=== PATIENT | male | born 1950 | race Caucasian/White ===

== ENCOUNTER 2024-02-29 10:53 | Inpatient (IN) | payer OTHER ==
[~2024-02-29 10:53] MED LIST: Iopamidol-370 76% 500 ML MDV (1 ML CHARGE) ONE
[2024-02-29] MEDS ORDERED: Morphine 2 MG/ML VIAL ONE (11:21)
[2024-02-29] MEDS ORDERED: Ondansetron PF 4 MG/2 ML Vial ONE (11:22)
[2024-02-29] MEDS ORDERED: Pantoprazole 40 MG VIAL ONE (11:22)
[2024-02-29 11:44] LABS: #Basophils 0.05 10x3/uL (0.0-0.2); %Basophils 0.6 % (0.0-1.0); %Eosinophils 2.3 % (0.0-10.0); %Lymphocytes 13.8 % (21.0-51.0); %Monocytes 8.5 % (0.0-10.0); %Neutrophils 74.6 % (42.0-75.0); Hematocrit 37.9 % (42.0-52.0); Hemoglobin 11.8 g/dL (14.0-18.0); Mean Corpuscular HGB CONC 31.1 g/dL (32.0-36.0); Mean Corpuscular Hemoglobin 28.8 pg (27.0-31.0); Mean Corpuscular Volume 92.4 fL (78.0-98.0); Mean Platelet Volume 11.1 fL (7.4-10.4); Platelet Count 141 10x3/uL (130-400); RBC Distribution Width 13.8 % (11.5-14.5)
[2024-02-29 12:07] LABS: ALT (SGPT) 96 U/L (8-55); AST (SGOT) 108 U/L (5-34); Albumin 3.2 g/dL (3.4-4.8); Alkaline Phosphatase 368 U/L (40-110); Anion Gap 18 mmol/L (10-20); BUN (Urea Nitrogen) 17 mg/dL (8.4-25.7); Bilirubin, Total 1.9 mg/dL (0.2-1.2); Calc. Creatinine Clearance 0 mL/min (70-130); Calcium 9.2 mg/dL (7.8-10.44); Carbon Dioxide 27 mmol/L (23-31); Chloride 97 mmol/L (98-107); Estimated GFR 72; Globulin 3.7 g/dL (2.4-3.5); Glucose 101 mg/dL (83-110); Lipase 17 U/L (8-78); Potassium 4.8 mmol/L (3.5-5.1); Protein, Total 6.9 g/dL (5.8-8.1); Sodium 137 mmol/L (136-145)
[2024-02-29 12:13] LABS: Troponin I 0.085 ng/mL (< 0.028)
[2024-02-29] MEDS ORDERED: Piperacillin/Tazobactam 3.375 GM VIAL ONE (16:00)
[2024-02-29] MEDS ORDERED: Sodium Chloride 0.9% 100 ML ONE (16:02)
[2024-02-29] MEDS ORDERED: Bisacodyl 5 MG TAB PO PRN (17:52)
[2024-02-29] MEDS ORDERED: Ondansetron ODT 4 MG TAB PO PRN (17:52)
[2024-02-29] MEDS ORDERED: Senokot S 8.6-50 MG TAB PO PRN (17:52)
[2024-02-29] MEDS ORDERED: Ondansetron PF 4 MG/2 ML Vial IVP PRN (17:52)
[2024-02-29] MEDS: Sodium Chloride 0.9% 1,000 ML IV SCH (19:00)
[2024-02-29] MEDS: Piperacillin/Tazobactam 3.375 GM in Sodium Chloride 0.9% 100 ML IVPB SCH (20:50)
[2024-02-29] MEDS: levETIRAcetam 500 MG TAB PO SCH (20:50)
[2024-02-29] MEDS: Flecainide Acetate 100 MG TAB PO SCH (20:51)
[2024-02-29] MEDS: Terazosin HCl 1 MG CAP PO SCH (20:51)
[2024-02-29] MEDS: Pantoprazole DR 40 MG TAB PO SCH (20:51)
[2024-02-29 21:26] VITALS: BMI 29.1
[2024-03-01 04:55] LABS: #Basophils 0.06 10x3/uL (0.0-0.2); %Basophils 0.8 % (0.0-1.0); %Lymphocytes 9.3 % (21.0-51.0); %Neutrophils 77.4 % (42.0-75.0)
[2024-03-01 05:13] LABS: ALT (SGPT) 76 U/L (8-55); AST (SGOT) 92 U/L (5-34); Albumin 2.7 g/dL (3.4-4.8); Alkaline Phosphatase 315 U/L (40-110); Anion Gap 16 mmol/L (10-20); BUN (Urea Nitrogen) 14 mg/dL (8.4-25.7); Bilirubin, Total 1.7 mg/dL (0.2-1.2); Calc. Creatinine Clearance 86 mL/min (70-130); Calcium 8.1 mg/dL (7.8-10.44); Carbon Dioxide 23 mmol/L (23-31); Chloride 104 mmol/L (98-107); Estimated GFR 82; Globulin 3.2 g/dL (2.4-3.5); Glucose 72 mg/dL (83-110); Potassium 3.3 mmol/L (3.5-5.1); Protein, Total 5.9 g/dL (5.8-8.1); Sodium 140 mmol/L (136-145)
[2024-03-01 06:11] LABS: Anisocytosis SLIGHT = 6-15 cells HPF (0-5); Band 7 % (5-11); Eosinophils 3 % (0-10); Large Platelets 3.4 % (0-5); Lymphocytes 5 % (21-51); Macrocytosis SLIGHT = 6-15 cells HPF (0-5); Monocytes 3 % (0-10); Neutrophil 79 % (42-75); Ovalocytes SLIGHT = 2-5 cells HPF (0-1); Platelet Adequacy Comment Platelets Decreased; Polychromasia SLIGHT = 2-3 cells HPF (0-2); Smudge Cells 5.2 %
[2024-03-01] MEDS: Levothyroxine 175 MCG TAB PO SCH (06:12)
[2024-03-01 06:22] LABS: Hematocrit 33.4 % (42.0-52.0); Hemoglobin 10.5 g/dL (14.0-18.0); Mean Corpuscular HGB CONC 31.4 g/dL (32.0-36.0); Mean Corpuscular Hemoglobin 28.6 pg (27.0-31.0); Mean Platelet Volume 11.1 fL (7.4-10.4); Platelet Count 121 10x3/uL (130-400); Red Blood Cell (RBC) Count 3.67 mill/uL (4.70-6.10)
[2024-03-01] MEDS ORDERED: Electrolyte Replacement Protocol 1 EACH FS SCH (08:56)
[2024-03-01] MEDS ORDERED: Iopamidol 370 76% 100 ML VIAL ONE (09:44)
[2024-03-01] MEDS: Potassium Chloride 20 MEQ TAB PO SCH (10:17)
[2024-03-01] MEDS: Pantoprazole DR 40 MG TAB PO SCH (10:17)
[2024-03-01] MEDS: Ezetimibe 10 MG TAB PO SCH (20:25)
[2024-03-01] MEDS: Atorvastatin Calcium 40 MG TAB PO SCH (20:25)
[2024-03-01] MEDS: Terazosin HCl 1 MG CAP PO SCH (20:26)
[2024-03-01] MEDS: Timolol 0.5% Ophth Soln 5 ml Bottle EA EYE SCH (20:26)
[2024-03-02 05:46] LABS: Anion Gap 13 mmol/L (10-20); BUN (Urea Nitrogen) 9 mg/dL (8.4-25.7); Calc. Creatinine Clearance 111 mL/min (70-130); Calcium 7.9 mg/dL (7.8-10.44); Carbon Dioxide 22 mmol/L (23-31); Chloride 108 mmol/L (98-107); Estimated GFR 96; Glucose 100 mg/dL (83-110); Potassium 3.6 mmol/L (3.5-5.1); Sodium 139 mmol/L (136-145)
[2024-03-02 05:51] LABS: #Basophils 0.07 10x3/uL (0.0-0.2); %Basophils 0.9 % (0.0-1.0); %Eosinophils 5.8 % (0.0-10.0); %Lymphocytes 15.2 % (21.0-51.0); %Monocytes 8.5 % (0.0-10.0); %Neutrophils 69.1 % (42.0-75.0); Hematocrit 32.2 % (42.0-52.0); Hemoglobin 10.3 g/dL (14.0-18.0); Mean Corpuscular Hemoglobin 28.7 pg (27.0-31.0); Mean Corpuscular Volume 89.7 fL (78.0-98.0); Mean Platelet Volume 11.3 fL (7.4-10.4); Platelet Count 130 10x3/uL (130-400); RBC Distribution Width 14.2 % (11.5-14.5); Red Blood Cell (RBC) Count 3.59 mill/uL (4.70-6.10)
[2024-03-02] MEDS ORDERED: Electrolyte Replacement Protocol FS PRN (08:15)
[2024-03-02] MEDS: Aspirin 81 mg Enteric Coated Tablet PO SCH (08:49)
[2024-03-02] MEDS: Magnesium 2 GM/50 ML(in water) 2 GM in Premix 1 BAG IVPB SCH (09:01)
[2024-03-02] MEDS: Morphine 4 MG/ML VIAL SLOW IVP PRN (09:15)
[2024-03-02] MEDS ORDERED: PROPOFOL 40 ML ONE (11:23)
[2024-03-02] MEDS: Lidocaine 2% Viscous 10 mL, Alum & Magn 30 mL SSW SCH (14:53)
[2024-03-03 05:58] LABS: Anion Gap 12 mmol/L (10-20); BUN (Urea Nitrogen) 9 mg/dL (8.4-25.7); Calc. Creatinine Clearance 123 mL/min (70-130); Calcium 7.9 mg/dL (7.8-10.44); Carbon Dioxide 23 mmol/L (23-31); Chloride 109 mmol/L (98-107); Estimated GFR 98; Glucose 101 mg/dL (83-110); Potassium 3.8 mmol/L (3.5-5.1); Sodium 140 mmol/L (136-145)
[2024-03-03 06:27] LABS: #Basophils 0.07 10x3/uL (0.0-0.2); %Basophils 0.9 % (0.0-1.0); %Eosinophils 7.1 % (0.0-10.0); %Lymphocytes 16.6 % (21.0-51.0); %Monocytes 7.8 % (0.0-10.0); Hematocrit 32.9 % (42.0-52.0); Hemoglobin 10.1 g/dL (14.0-18.0); Mean Corpuscular HGB CONC 30.7 g/dL (32.0-36.0); Mean Corpuscular Hemoglobin 28.9 pg (27.0-31.0); Mean Platelet Volume 11.4 fL (7.4-10.4); Platelet Count 126 10x3/uL (130-400); RBC Distribution Width 14.6 % (11.5-14.5)
[2024-03-03 07:53] VITALS: TEMP 97.9
[2024-03-03 14:20] VITALS: BP 121/66
== END 2024-03-03 14:24 | disposition home or self-care (01) | DRG 375 ==
LOC: ERS 10:53 → EEVIPCON 17:25 → MSONC 17:25 → OBSVTOIN 03-01 13:11
PROVIDERS: ADMIT Internal Medicine; ATTEND Internal Medicine
PROC: 0DB58ZX Excision of Esophagus, Via Natural or Artificial Opening Endoscopic, Diagnostic (ICD-10-PCS; principal; 2024-03-02)
DX: C15.9 Malignant neoplasm of esophagus, unspecified (principal); C78.7 Secondary malignant neoplasm of liver and intrahepatic bile duct; I48.20 Chronic atrial fibrillation, unspecified; I10 Essential (primary) hypertension; E78.5 Hyperlipidemia, unspecified; I48.91 Unspecified atrial fibrillation; G40.909 Epilepsy, unspecified, not intractable, without status epilepticus; J45.909 Unspecified asthma, uncomplicated; K21.9 Gastro-esophageal reflux disease without esophagitis; E05.00 Thyrotoxicosis with diffuse goiter without thyrotoxic crisis or storm; N40.0 Benign prostatic hyperplasia without lower urinary tract symptoms; Z95.0 Presence of cardiac pacemaker; K74.60 Unspecified cirrhosis of liver; E03.9 Hypothyroidism, unspecified; Z79.890 Hormone replacement therapy; Z86.73 Personal history of transient ischemic attack (TIA), and cerebral infarction without residual deficits; Z79.899 Other long term (current) drug therapy; R13.10 Dysphagia, unspecified
CPT/HCPCS: 36415; 71045; 71260; 74177; 76705; 80048; 80053; 82105; 82378; 83690; 83735; 84484; 85025; 88305; 88312; 88341; 88342; 93005; 94760; 96374; 96375; J2272; J2405; J2470; J2543; J2704; J3475; J7030; Q9967